=== PATIENT | female | born 1965 | race Caucasian/White ===

== ENCOUNTER → 2017-01-15 | Outpatient (CLI) | payer OTHER | LOC: MC.RAD 14:00 | DX: Z12.31 Encounter for screening mammogram for malignant neoplasm of breast (principal); N63 Unspecified lump in breast ==

== ENCOUNTER → 2017-01-20 | Outpatient (CLI) | payer OTHER | LOC: MC.RAD 10:00 | DX: D48.62 Neoplasm of uncertain behavior of left breast (principal) ==

== ENCOUNTER → 2017-01-26 | Outpatient (CLI) | payer OTHER | LOC: MC.RAD 09:50 | DX: N63 Unspecified lump in breast (principal) ==

== ENCOUNTER → 2018-02-21 | Outpatient (CLI) | payer OTHER | LOC: MC.RAD 08:40 | DX: Z12.31 Encounter for screening mammogram for malignant neoplasm of breast (principal) ==

== ENCOUNTER → 2019-02-23 | Outpatient (CLI) | payer OTHER | LOC: MC.RAD 15:58 | DX: Z12.31 Encounter for screening mammogram for malignant neoplasm of breast (principal) ==